=== PATIENT | female | born 1990 | race African-American/Black ===

== ENCOUNTER 2021-08-20 09:19 | Outpatient (CLI) | payer BC, SELFPAY ==
--- NOTE | ~2021-08-20 | US_ITS ---
EXAMINATION: US OB <= 14 weeks fetus DATE: 08/20/2021 10:58 INDICATION: Personal history of other complications of . TECHNIQUE: Real-time transabdominal and transvaginal pelvic ultrasound was performed. COMPARISON: None. FINDINGS: TRANSABDOMINAL ULTRASOUND: The uterus measures 11.4 x 6.4 x 4.7 cm. TRANSVAGINAL ULTRASOUND: There is an intrauterine gestational sac. A yolk sac is identified. The fet al crown rump length measures 4 mm, which correlates with an estimated gestational age of 5 weeks and 6 day(s) (+/-) 3 day(s). heart motion is identified measuring 112 beats per minute (bpm) by M- mode Doppler. There is a hypoechoic subchorionic hematoma measuring 1.5 x 2.0 x 0.5 cm. The right ova ry measures 2.7 x 2.3 x 2.3 cm. The left ovary measures 4.2 x 2.8 x 2.2 cm. There is trace free fluid in the pelvis. IMPRESSION: 1. Single living intrauterine gestation with estimated date of delivery of 04/15/2022. 2. Small subchorionic hematoma. Reviewed, dictated and finalized at location B. IMPRESSION: 1. Single living intrauterine gestation with estimated date of delivery of . 2. Small subchorionic hematoma.
== END 2021-08-20 09:20 | disposition home or self-care (01) ==
LOC: ANHIMG 09:27
PROVIDERS: Visit Provider Obstetrics & Gynecology
DX: Z87.59 Personal history of other complications of pregnancy, childbirth and the puerperium (principal); O36.8911 Maternal care for other specified fetal problems, first trimester, fetus 1; Z3A.00 Weeks of gestation of pregnancy not specified
CPT/HCPCS: 76801

== ENCOUNTER 2023-11-26 11:47 | Observation (INO) | payer BC, SELFPAY ==
[2023-11-26] VITALS (18 sets, daily range): BP systolic 93–113; BP diastolic 50–71; PULSE 88–157; O2SAT 83–100; BMI 26.2
[2023-11-26 12:24] LABS: Add Urine Microscopic? NO; Appearance Urine Clear (Clear); Bilirubin Urine Negative (Negative); Blood Urine Negative (Negative); Color Urine Yellow (Yellow); Glucose Urine UA Negative (Negative); Ketones Urine Negative (Negative); Leukocyte Esterase Ur Negative LEU/UL (Negative); Nitrate Urine Negative (Negative); Protein Urine Negative (Negative); Specific Grav Ur 1.015 (1.001-1.035); Urobilinogen Urine 0.2 mg/dL (<2.0)
--- NOTE | 2023-11-26 12:28 | LDADM ---
This patient, Rosibel Franco, was admitted to OB Post 115 on 11/26/23 at 11:47. Plans for labor, pain management and were discussed with patient. Patient/family oriented to hospital policies and general routines including ID bracelet, bed and alarms, visiting hours, pain management, procedures, bathroom and other care routines, personal items, smoking policy, room service/diet and guest tray routines, infant security routines, and visiting hours. Patient/Family are encouraged to report perceived risks to care and to ask questions if they do not understand what they are told or what they should do. See OBIX for further documentation.
--- NOTE | 2023-11-26 12:31 | PC.NURSE ---
Patient admitted to L&D observation with complaints of intermittent lower abdominal cramping. Patient states cramping has persisted intermittently since late last night. Patient states she felt 6 contractions in one hour and came in to be evaluated. Patient has not taken anything for pain as she states the cramping is very mild. UA sent on patient and patient given a pitcher of water with instructions to drink all of it.
[2023-11-26] MEDS: TERBUTALINE SULFATE 1 MG/ML VIAL 0.25 MG SUB-Q (13:54)
--- NOTE | 2023-11-26 13:58 | PC.NURSE ---
1245: Called Dr. Jerome, awaiting callback 1330: Called office and asked for Dr. Jerome. Office stated MD to return call. 1338: Spoke with Dr. Jerome on phone. Notified MD of patient's arrival, complaints of mild contractions, reactive tracing for 26 week gestational age and irregular contractions. Verbal orders received for FFN, cervical exam, and dose of terbutaline. MD requests callback with FFN results. 1350: FFN obtained, Allyn Strickland RN performed SVE and found patient's cervix to be closed/thick/high. 0.25mg subq terbutaline given at 1354.
[2023-11-26 14:34] LABS: Fetal Fibronectin Negative
--- NOTE | 2023-11-26 14:42 | PC.NURSE ---
1442: Spoke with Dr. Jerome on phone. Notified MD of FFN results, cervical exam, and contractions spacing out after terbutaline dose. MD gave verbal orders to discharge patient home with labor precautions. Patient agrees with plan of care at this time and has no questions.
--- NOTE | 2023-12-19 09:48 | PM.OBTRLD ---
OB - Triage/Final Diagnosis Visit Information Comments/Additional reasons for admission: I have assessed the risk for this patient, Rosibel Franoc, and determined that she would benefit from observation care. Evaluation Laboratory results: Laboratory Tests 11/26/23 11/26/23 12:16 13:49 Urine Color Yellow Urine Appearance Clear Urine pH 6.0 Ur Specific [place] 1.015 Urine Protein Negative Urine Glucose (UA) Negative Urine Ketones Negative Ur Blood (Man) Negative Urine Nitrate Negative Urine Bilirubin Negative Urine Urobilinogen 0.2 Leukocyte Esterase Rfl Negative Fibronectin Negative Final Diagnosis (1) contractions: Code(s): O47.00 - False labor before 37 completed weeks of gestation, unspecified trimester Status: Acute
== END 2023-11-26 14:57 | disposition home or self-care (01) ==
PROVIDERS: Admitting Provider Obstetrics & Gynecology; Visit Provider Obstetrics & Gynecology
DX: O47.02 False labor before 37 completed weeks of gestation, second trimester (principal); Z3A.26 26 weeks gestation of pregnancy
CPT/HCPCS: 81003; 82731; 96372; G0378; G0379; J3105

== ENCOUNTER 2024-01-15 12:34 | Outpatient (CLI) | payer BC, SELFPAY ==
[2024-01-15 13:04] LABS: Total Volume 24 Hour Urine 1900 ml
[2024-01-15 13:12] LABS: Total Protein Urine 24 Hr 285 mg/24hr (28-141); Total Protein Urine Random 15 mg/dL
== END 2024-01-15 12:35 | disposition home or self-care (01) ==
PROVIDERS: Visit Provider Obstetrics & Gynecology
DX: O14.90 Unspecified pre-eclampsia, unspecified trimester (principal)
CPT/HCPCS: 81050; 84156

== ENCOUNTER 2024-01-16 11:11 | Observation (INO) | payer BC, SELFPAY ==
[2024-01-16] VITALS (7 sets, daily range): BP systolic 103–114; BP diastolic 57–67; PULSE 85–102; TEMP 36.4; BMI 28.5
[2024-01-16] MEDS: NIFEdipine 10 MG CAPSULE PO (12:27)
[2024-01-16 12:41] LABS: Add Urine Microscopic? NO; Appearance Urine Clear (Clear); Bilirubin Urine Negative (Negative); Blood Urine Negative (Negative); Color Urine Yellow (Yellow); Glucose Urine UA Negative (Negative); Ketones Urine Negative (Negative); Leukocyte Esterase Ur Negative LEU/UL (Negative); Nitrate Urine Negative (Negative); Protein Urine Negative (Negative); Urobilinogen Urine 0.2 mg/dL (<2.0); pH Urine 6.5 (5.0-9.0)
--- NOTE | 2024-01-16 14:05 | OBADM ---
This patient, Rosibel Franco, admitted to the OB room OB Post 113 for observation. Patient/family oriented to hospital policies and general routines including ID bracelet, bed and alarms, visiting hours, pain management, procedures, bathroom and other care routines, personal items, smoking policy, room service/diet, and visiting hours. Patient/Family are encouraged to report perceived risks to care and to ask questions if they do not understand what they are told or what they should do.
--- NOTE | 2024-01-19 10:12 | PM.OBTRLD ---
OB - Triage/Final Diagnosis Visit Information Comments/Additional reasons for admission: I have assessed the risk for this patient, Rosibel Franco, and determined that she would benefit from observation care. Evaluation Laboratory results: Laboratory Tests 01/16/24 12:26 Urine Color Yellow Urine Appearance Clear Urine pH 6.5 Ur Specific [place] 1.010 Urine Protein Negative Urine Glucose (UA) Negative Urine Ketones Negative Ur Blood (Man) Negative Urine Nitrate Negative Urine Bilirubin Negative Urine Urobilinogen 0.2 Leukocyte Esterase Rfl Negative Final Diagnosis (1) contractions: Code(s): O47.00 - False labor before 37 completed weeks of gestation, unspecified trimester Status: Acute
== END 2024-01-16 14:40 | disposition home or self-care (01) ==
PROVIDERS: Admitting Provider Obstetrics & Gynecology; Visit Provider Obstetrics & Gynecology
DX: O47.03 False labor before 37 completed weeks of gestation, third trimester (principal); Z3A.33 33 weeks gestation of pregnancy
CPT/HCPCS: 81003; A9270; G0378; G0379

== ENCOUNTER 2024-02-16 11:55 | Outpatient (RCR) | payer BC, SELFPAY ==
[2024-01-26 16:19] VITALS: BP 106/64; PULSE 92
[2024-02-03 15:45] VITALS: BP 99/71; PULSE 92
[2024-02-10 15:03] VITALS: BP 106/71; PULSE 95
[2024-02-12 18:18] VITALS: BP 111/67; PULSE 102
--- NOTE | ~2024-02-16 | US_ITS ---
EXAMINATION: US OB limited w BPP DATE: 01/26/2024 16:11 CDT INDICATION: Decreased movement TECHNIQUE: Real-time transabdominal transabdominal obstetric ultrasound. FINDINGS: Amniotic fluid index measures 16.4 cm (5th percentile is 7.9 cm and 95th percentile is 24.9 cm). The cervix measures 4.6 cm, and is closed. There is a single intrauterine gestation in transverse presentation. The placenta is anterior withou t evidence of previa. cardiac activity and movement is noted with a rate of 148 beats per minute. Biophysical profile: breathin of 2 movement: 2 of 2 tone: 2 of 2 Amniotic flud pocket: 2 of 2 Total score: 8 of 8 IMPRESSION: 1. Single intrauterine gestation in transverse presentation. 2: Total biophysical profile score of 8 of 8. Amniotic fluid index is within normal limits, as detailed above. Reviewed, dictated and finalized at location A.
--- NOTE | ~2024-02-16 | US_ITS ---
EXAMINATION: US OB BPP wo non-stress DATE: 02/10/2024 15:52 INDICATION: Large for gestational age. Decreased movements. TECHNIQUE: Real-time pelvic ultrasound was performed. The interpreting radiologist was not present fo r the study. COMPARISON: None. FINDINGS: There is a single living fetus in vertex presentation. The placenta is anterior. cardiac activ ity and movement are demonstrated. heart rate is 152 beats per minute (bpm). Biophysical profile performed by the technologist: breathing (30 sec sustained breathing in 30 minutes): 2 out of 2 movement (3 gross body movements in 30 minutes): 2 out of 2 tone (one episode of afknfgr-shyieynkz-fyrpwte limb movement): 2 out of 2 Amniotic fluid pocket (2 cm): 2 out of 2 Total score: 8 out of 8 IMPRESSION: 1. Single living intrauterine in presentation with heart rate of with heart rat e of [ bpm. 2. Normal placenta. 3. Biophysical profile out of 8. Reviewed, dictated and finalized at location B. IMPRESSION: 1. Single living intrauterine in presentation with heart rate o f with heart rate of [ bpm. 2. Normal placenta. 3. Biophysical profile out of 8.
--- NOTE | ~2024-02-16 | US_ITS ---
EXAMINATION: US OB BPP wo non-stress DATE: 02/16/2024 13:26 INDICATION: Large for gestational age. Third trimester. TECHNIQUE: Real-time pelvic ultrasound was performed. COMPARISON: Ultrasound 02/12/2024 FINDINGS: There is a single living fetus in breech presentation. The placenta is anterior. heart rate is 146 beats per minute (bpm). The cervical length is 2.8 cm on transabdominal images, which is normal. Biophysical profile performed by the technologist: breathing (30 sec sustained breathing in 30 minutes): 2 out of 2 movement (3 gross body movements in 30 minutes): 2 out of 2 tone (one episode of mvtimqn-pdakpzzpv-ogbzsct limb movement): 2 out of 2 Amniotic fluid pocket (2 cm): 2 out of 2 Total score: 8 out of 8 IMPRESSION: 1. Single living fetus in breech presentation. 2. Biophysical profile 8 out of 8. Reviewed, dictated and finalized at location B.
--- NOTE | ~2024-02-16 | US_ITS ---
EXAMINATION: US OB BPP wo non-stress DATE: 02/12/2024 17:54 INDICATION: Decreased movement TECHNIQUE: Real-time pelvic ultrasound was performed. The interpreting radiologist was not present fo r the study. COMPARISON: None. FINDINGS: There is a single living fetus in vertex presentation. The placenta is anterior. heart rate is 152 beats per minute (bpm). Amniotic fluid volume is subjectively normal with normal deepest vertica l pocket measuring 5.2 cm. Biophysical profile performed by the technologist: breathing (30 sec sustained breathing in 30 minutes): 2 out of 2 movement (3 gross body movements in 30 minutes): 2 out of 2 tone (one episode of mwbpitw-isggcanjt-qfdpprt limb movement): 2 out of 2 Amniotic fluid pocket (2 cm): 2 out of 2 Total score: 8 out of 8 IMPRESSION: 1. Single living fetus in vertex presentation with heart rate of 152 bpm. 2. Biophysical profile 8 out of 8. Reviewed, dictated and finalized at location A.
--- NOTE | ~2024-02-16 | US_ITS ---
EXAMINATION: US OB BPP wo non-stress DATE: 02/03/2024 15:58 INDICATION: Large for gestational age. Third trimester. TECHNIQUE: Real-time pelvic ultrasound was performed. COMPARISON: Ultrasound 01/26/2024 FINDINGS: There is a single living fetus in vertex presentation. The placenta is anterior. The cervical length is 4.5 cm on transabdominal images, which is normal. heart rate is 145 beats per minute (bpm). The deepest vertical pocket is 3.9 cm. Biophysical profile performed by the technologist: breathing (30 sec sustained breathing in 30 minutes): 2 out of 2 movement (3 gross body movements in 30 minutes): 2 out of 2 tone (one episode of zperqwk-yotaygnnu-qhjcfap limb movement): 2 out of 2 Amniotic fluid pocket (2 cm): 2 out of 2 Total score: 8 out of 8 IMPRESSION: 1. Single living fetus in vertex presentation. 2. Biophysical profile 8 out of 8. Reviewed, dictated and finalized at location A.
--- NOTE | 2024-02-16 14:50 | PC.NURSE ---
See inpatient number for charting.
== END 2024-04-25 23:59 | disposition home or self-care (01) ==
LOC: ANHOBOP 11:55
PROVIDERS: Visit Provider Obstetrics & Gynecology
DX: O36.8130 Decreased fetal movements, third trimester, not applicable or unspecified (principal); Z3A.35 35 weeks gestation of pregnancy
CPT/HCPCS: 59025; 76815; 76819

== ENCOUNTER 2024-02-16 13:30 | Inpatient (IN) | payer BC, SELFPAY ==
[2024-02-16] VITALS (42 sets, daily range): BP systolic 95–127; BP diastolic 48–81; PULSE 54–125; RESP 13–20; TEMP 35.7–36.9; O2SAT 95–100; BMI 29.7
--- NOTE | 2024-02-16 13:30 | LDADM ---
This patient, Rosibel Franco, was admitted to Labor/Delivery/Recovery 119 on 02/16/24 at 13:30. Plans for labor, pain management and were discussed with patient. Patient/family oriented to hospital policies and general routines including ID bracelet, bed and alarms, visiting hours, pain management, procedures, bathroom and other care routines, personal items, smoking policy, room service/diet and guest tray routines, security routines, and visiting hours. Patient/Family are encouraged to report perceived risks to care and to ask questions if they do not understand what they are told or what they should do. See OBIX for further documentation.
[2024-02-16] MEDS: LACTATED RINGERS 1,000 ML 125 ML IV CONT ×2 (14:13→14:58)
[2024-02-16] MEDS: ACETAMINOPHEN 500 MG TABLET 1000 MG PO (14:14)
[2024-02-16 14:22] LABS: Basophils Percent Auto 0.5 % (0.2-1.2); Eosinophils Percent Auto 0.3 % (0-4.4); Hematocrit 40.6 % (37.0-47.0); Hemoglobin 13.7 g/dL (12.0-15.0); Immature Granulocyte Absolute 0.28 K/mm3 (0.00-0.031); Immature Granulocyte Percent A 3.2 % (0-0.5); Lymphocytes Absolute Auto 1.65 K/mm3 (0.9-3.2); Lymphocytes Percent Auto 18.8 % (18.3-44.2); Mean Corpuscular HGB Conc 33.7 g/dl (32-36); Mean Corpuscular Hemoglobin 31.6 pg (26-34); Mean Corpuscular Volume 93.8 fl (80-100); Mean Platelet Volume 12.2 fl (7.4-10.4); Monocytes Absolute Auto 0.9 K/mm3 (0.1-0.6); Monocytes Percent Auto 10.3 % (2.6-8.5); Neutrophils Absolute Auto 5.9 K/mm3 (1.3-6.7); Neutrophils Percent Auto 66.9 % (45.5-73.1); Platelet Count Result 192 k/mm3 (150-375); Red Blood Count 4.33 M/mm3 (4.2-5.4); Red Cell Distribution Width 13.5 % (11.5-14.5); White Blood Count 8.8 K/mm3 (4.5-10.0)
--- NOTE | 2024-02-16 14:29 | P.PNAN_ITS ---
Anes - Initial Pre Proc Eval Procedure: Operation Date: 02/24/24 07:30 Proposed Procedures p Repeat Section - Arsen Jerome MD Date/Time: 02/16/24 14:29 Surgeon: Arsen Jerome MD Pre Op Diagnosis: Csection Patient Data Age: 33 Gender: F Height: Weight: Allergies Allergy/AdvReac Type Severity Reaction Status Date / Time alligator Allergy Intermediate Swelling Uncoded 02/12/24 15:16 Home Medications Medication Instructions Recorded Confirmed Type [id number] 27 mg-folic 1 cap PO DAILY #90 caps 06/24/23 02/12/24 Rx acid 1 mg-dss 50 mg-dha 260 mg capsule aspirin 81 mg capsule 81 mg PO DAILY 11/26/23 02/12/24 History docusate sodium 100 mg capsule 100 mg PO DAILY 01/16/24 02/12/24 History (Colace) ferrous sulfate 325 mg (65 mg 325 mg PO DAILY 01/16/24 02/12/24 History iron) tablet Laboratory Tests 02/16/24 14:05 WBC Pending RBC Pending Hgb Pending Hct Pending MCV Pending MCH Pending MCHC Pending RDW Pending Plt Count Pending MPV Pending Immature Gran % (Auto) Pending Neut % (Auto) Pending Lymph % (Auto) Pending [place] % (Auto) Pending Eos % (Auto) Pending Baso % (Auto) Pending Lymph # (Auto) Pending [place] # (Auto) Pending Eos # (Auto) Pending Baso # (Auto) Pending Abs Immat Gran (auto) Pending Absolute Neuts (auto) Pending Absolute Nucleated RBC Pending Nucleated RBC % Pending RPR Pending HIV 1&2 Ab/P24 Ag 4thGn Pending Blood Type Pending Antibody Screen Pending Patient hx anesthesia problems: none Family hx anesthesia problems: none Results Review: All pre-operative results and documents have been reviewed as part of the pre- operative evaluation. [facility] Past Medical History Medical History History of miscarriage Hx of ectopic Family History Family History Grandparent Cerebrovascular accident Grandparent H/O cancer of gall bladder Social History Social History Smoking status: Never smoker Alcohol intake: current Substance use: never Lack of Transportation: No Lack of Food: Never True Current Housing: I Have Housing Concerned About Future Housing: No Difficulty Paying Gas/Electric Bills: No Difficulty Paying for Meds: No Currently Unemployed: No Education: Bachelor's Degree Difficulty w/ Childcare or Family Care: No Spiritual care concerns: No Anes - Eval Final PreProcedure Day of Procedure 02/16/24 14:29 Patient weight: normal Heart: regular rate and rhythm Lungs: clear to auscultation Airway: Mallampati scale class II Neurological: alert and oriented Last oral intake: >/= 8 hours ASA classification: II Emergent: no Anesthetic plan: proceed Anesthesia type and monitoring: regional spinal and standard monitoring Results Review: All pre-operative results and documents have been reviewed as part of the pre- operative evaluation. Informed Consent: The patient's anesthetic plan and its attendant risks and benefits were discussed with the patient/family/POA. Questions were solicited and answers provided to the satisfaction of the patient/family/POA.
[2024-02-16 15:17] LABS: HIV 1/2 Ab P24 Ag Result Negative (Negative)
[2024-02-16 15:28] LABS: Rapid Plasma Reagin Non-Reactive (NonReactive)
[2024-02-16] MEDS: FAMOTIDINE 20 MG/2 ML VIAL IV PUSH (15:40)
[2024-02-16] MEDS: ONDANSETRON INJ 4 MG/2 ML VIAL IV PUSH ×2 (15:40→18:46)
[2024-02-16] MEDS: ceFAZolin 2 GM/D5W 50 ML 2 GM/50 ML BAG IVPB (15:55)
--- NOTE | 2024-02-16 15:55 | WPDHPUPDATE1 ---
History and Physical Update Update Date/Time: 02/16/24 15:55 History and Physical has been reviewed, including an updated exam of the patient. Patient admitted for repeat section for nonreassuring surveillance testing. She has LGA fetus, breech. Has had decrease, minimal movement kick counts for a week. Today's NST NR within the time frame. This is a change from prior testing. Recommend repeat section today. Risk benefits and alternatives discussed. She agrees tor repeat seciton.There are NO changes in the patient's condition. Risks, benefits, and alternatives have been discussed and questions answered. Patient agrees to proceed with procedure.
--- NOTE | 2024-02-16 17:19 | W.PM.OBCSD ---
OB - Delivery Note Procedure Delivery date: 02/17/24 Pre-op diagnosis: Macrosomia and Non-Reassuring Status (non reactive NST) Post-op Diagnosis: Same Delivery monitor: External FHT Prior to decision for section, ACOG/SM labor guidelines were considered and discussed with the patient and staff. Decision made to proceed with the section.: Yes Procedure Performed: Repeat Surgeon: Arsen Jerome MD Anesthesia type: Spinal Description of Procedure/Findings: male 9lbs 2oz, footling breech presentation. After informed consent, risks and benefits of the procedure was discussed with the patient. The patient was taken to the operating room where she was placed in the dorsal lithotomy position with leftward tilt. After spinal anesthesia was found to be adequate, she was then prepped and draped in the usual sterile fashion. A Pfannenstiel skin incision was made along prior Pfannenstiel scar with a scalpel and carried through to the underlying layer of fascia. The fascia was then nicked in the midline, extending bilaterally. The fascia was dissected off the rectus muscles bluntly and sharply, superiorly and inferiorly. The rectus muscles were in the midline, and peritoneum was identified and entered bluntly. The pelvic organs were visualized. The bladder blade was then inserted. The vesicouterine peritoneum was identified and entered sharply with Metzenbaum scissors and extended bilaterally and then the bladder flap was created digitally. The lower uterine segment was noted to be thin diffusely. There was not a window. The low transverse uterine incision was then made with the scalpel and extended with bilateral index fingers in a crescent-shaped fashion. the feet were gently grasped and the buttocks delivered. The arms and shoulders were delivered. The loose nuchal cord was manually reduced and the head was flexed and delivered.The nose and mouth suctioned. The infant was vigorously crying.The cord was clamped twice and cut. The infant was then handed off to the awaiting pediatric staff. Cord blood was obtained.The placenta was then delivered manually. The uterine cavity was sponge curretted. The uterus was then exteriorized. The uterine incision was then closed with 0 vicryl in a running locked fashion. Hemostasis noted. A second layer of 0 vicryl was used in an imbricating fashion for hemostasis. The posterior cul-de-sac was irrigated and cleared of debris and clots.The uterus was then returned to the abdomen. Bilateral gutters were irrigated and cleared off all clots and debris. The uterine incision was noted to be hemostatic. Interceed placed on uterine incision and vertically on front of uterus. The peritoneum was approximated with a running 3-0 Vicryl. The muscle bellies were inspected and noted to be hemostatic. The subfascial layer was noted to be hemostatic, and the fascia was closed with 0 Vicryl in a running fashion x2 sutures. The skin was 4-0 Vicryl on a Keif needle in a subcuticular fashion. Dermabond applied at incision. All instruments, needle, and lap counts were correct x3. The patient was taken to the recovery room in stable condition. Specimen: Yes (placenta and cord) Estimated Blood Loss: 205 Drains: No Packing: No Pathology: Yes Complications: No immediate complications Condition: Stable Disposition: Floor Baby Date of : 02/16/24 Infant gender: Male presentation: breech (footling)
[2024-02-16] MEDS: METHYLERGONOVINE MALEATE 0.2 MG/ML VIAL (17:36)
[2024-02-16] MEDS: OXYTOCIN 30 UNITS/NS 500 ML 30 UNITS/500 ML BAG 125 UNITS IV CONT (18:00)
[2024-02-16] MEDS: ACETAMINOPHEN 325 MG TABLET 650 MG PO (18:46)
[2024-02-16] MEDS: KETOROLAC 15 MG/ML VIAL (*BKC) IV PUSH (18:53)
[2024-02-16] MEDS: LIDOCAINE 5% PATCH 1 PATCH TRANSDERM (20:46)
[2024-02-16] MEDS: DEXTROSE 5%/0.45% SOD CHL 1,000 ML 125 ML IV CONT (22:38)
[2024-02-17 00:30] VITALS: BP 98/59; PULSE 80; RESP 16; TEMP 36.9; O2SAT 99
[2024-02-17] MEDS: ACETAMINOPHEN 325 MG TABLET 650 MG PO ×4 (01:14→20:28)
[2024-02-17] MEDS: KETOROLAC 15 MG/ML VIAL (*BKC) IV PUSH ×3 (01:15→14:23)
[2024-02-17 03:40] VITALS: BP 92/49; PULSE 69; RESP 16; TEMP 36.4; O2SAT 99
[2024-02-17 05:07] LABS: Basophils Absolute Auto 0.1 K/mm3 (0.0-0.1); Basophils Percent Auto 0.4 % (0.2-1.2); Eosinophils Percent Auto 0.1 % (0-4.4); Hemoglobin 11.5 g/dL (12.0-15.0); Immature Granulocyte Absolute 0.12 K/mm3 (0.00-0.031); Immature Granulocyte Percent A 0.9 % (0-0.5); Lymphocytes Absolute Auto 1.19 K/mm3 (0.9-3.2); Lymphocytes Percent Auto 8.8 % (18.3-44.2); Mean Corpuscular HGB Conc 33.8 g/dl (32-36); Mean Corpuscular Hemoglobin 31.5 pg (26-34); Mean Corpuscular Volume 93.2 fl (80-100); Mean Platelet Volume 12.3 fl (7.4-10.4); Monocytes Absolute Auto 1.2 K/mm3 (0.1-0.6); Monocytes Percent Auto 8.8 % (2.6-8.5); Platelet Count Result 161 k/mm3 (150-375); Red Blood Count 3.65 M/mm3 (4.2-5.4); Red Cell Distribution Width 13.2 % (11.5-14.5); White Blood Count 13.6 K/mm3 (4.5-10.0)
--- NOTE | 2024-02-17 05:48 | OBPPTRN ---
02/17/2024 at 1940 Patient transferred on stretcher to post room #280. Patient oriented to unit, room, information board, rooming in, admission packet and security measures. Patient verbalizes understanding.
[2024-02-17 07:25] VITALS: BP 96/59; PULSE 95; RESP 18; TEMP 36.7; O2SAT 98
[2024-02-17] MEDS: MULTIVIT/MIN/PREN/FOL AC/IRON TABLET 1 TAB PO (07:56)
[2024-02-17] MEDS: SIMETHICONE 80 MG TAB.CHEW PO ×3 (07:56→16:35)
--- NOTE | 2024-02-17 10:25 | PC.NURSE ---
Observed mother with latched to the [right] breast in [cradle] position. [was] able to maintain an appropriate latch with audible swallowing. Mother [declines] nipple pain/discomfort [throughout feeding]. She breastfed her first baby for 1 year. Encouraged mother to keep awake and nursing at the breast for 15 minutes. Mother knows how to listen for swallowing during feedings. Reviewed using the blue feeding sheet to record time and duration of feeding. Mother voiced understanding of the education shared, to call for assistance if the infant does not latch or if there is discomfort with . name/number on communication board. Reported to the Primary RN.?
[2024-02-17 12:07] VITALS: BP 100/63; PULSE 84; RESP 18; TEMP 36.6; O2SAT 100
[2024-02-17] MEDS: HYDROcodone/acetaminophen (*CRX) 5-325 MG TABLET 1 TAB PO ×3 (13:05→19:53)
--- NOTE | 2024-02-17 14:34 | WPDANLDPN2 ---
Anes-Prog Note L&D Date/Time: 02/17/24 14:34 Comfortable throughout: section Neuraxial method: spinal Epidural/Spinal procedure site: clean & non-tender Neuro status: Neuro function grossly intact. Cardiovascular status: normal Respiratory status: normal Airway patency: baseline Mental status: baseline Vital Signs: Last Vital Signs Temp 36.6 C 02/17/24 12:07 Pulse 84 02/17/24 12:07 Resp 18 02/17/24 12:07 BP 100/63 02/17/24 12:07 Pulse Ox 100 02/17/24 12:07 O2 Del Method Room Air 02/16/24 19:25 Pain score (VAS): 1 I/O: Intake & Output 02/16/24 02/17/24 02/17/24 23:59 07:59 15:59 Intake Total 50 840 Output Total 205 [id number] 470 Pljhcox [phone] Patient feedback: Patient satisfied with anesthetic care.
--- NOTE | 2024-02-17 14:34 | WPDANLDNPN2 ---
Anes-Prog Note L&D-Neuraxial Date/Time: 02/17/24 14:34 Neuraxial medications: intrathecal PF morphine Opiod-related complaints: none Patient feedback: Patient satisfied with post-operative pain management.
[2024-02-17] MEDS: DOCUSATE SODIUM 100 MG CAPSULE PO (16:35)
[2024-02-17 20:00] VITALS: BP 100/56; PULSE 101; RESP 18; TEMP 37; O2SAT 100
[2024-02-17] MEDS: IBUPROFEN 600 MG TABLET PO (20:28)
[2024-02-18] MEDS: IBUPROFEN 600 MG TABLET PO ×3 (02:45→15:12)
[2024-02-18] MEDS: ACETAMINOPHEN 325 MG TABLET 650 MG PO ×3 (02:45→15:11)
[2024-02-18 08:05] VITALS: BP 90/59; PULSE 82; RESP 16; TEMP 37.1; O2SAT 99
--- NOTE | 2024-02-18 08:10 | PC.NURSE ---
Consulted with mother concerning needs and she shared her ability to independently latch infant optimally without pain. Mother is feeding appropriately for growth of and understands stimulating to eat if needed. Infant has had appropriate feedings in the last 24 hours meets the outcomes for weight, output, blood sugar and jaundice at this time. Reinforced understanding of milk production, transition of milk, signs of adequate intake, transition of stool, prevention/relief of engorgement, plugged ducts, mastitis, responsive watching for feeding cues, the different methods of stimulating to breastfeed 1-3 hours after the start of the last feeding, community resources, and when to call a provider using the resource of the feeding sheet along with the mom and baby guide. Mother voiced understanding of the information shared, is confident to continue effectively her infant at home, when to call for assistance, denies any additional assistance or education at this time. Reported to the Primary RN.
[2024-02-18] MEDS: MULTIVIT/MIN/PREN/FOL AC/IRON TABLET 1 TAB PO (09:34)
[2024-02-18] MEDS: SIMETHICONE 80 MG TAB.CHEW PO ×2 (09:35→13:20)
[2024-02-18] MEDS: DOCUSATE SODIUM 100 MG CAPSULE PO (09:35)
[2024-02-18] MEDS: HYDROcodone/acetaminophen (*CRX) 10-325 MG TABLET 1 TAB PO (13:19)
[2024-02-18] MEDS: BISACODYL 10 MG SUPPOSITORY RECTAL ×2 (15:54→17:35)
[2024-02-18] MEDS: PETROLATUM OINTMENT 5 GM PACKET 1 APPLIC ×2 (16:00→17:36)
--- NOTE | 2024-02-18 21:22 | PC.NURSE ---
0815 Stated stated, in person, she needs to pass gas before D/C. She has good bowl sounds just has not passed gas yet. Try prune juice and pepsi. Call when she does and she will put in the D/C order. 1030 given prune juice and pepsi. 1313 ambulated in the corea times [address] Jerome called to check on pts progress. This RN was not able to take the phone call. [address] Jerome per phone and left message with office staff for her to return my call. 1445 Dr. Jerome returned my call and an update was given. She stated to given the pt a suppository. If no passing gas in 1 hour it can be repeated. If no results after that dose she will need to stay over night. 1600 First on given. 1715 not passing gas. 1742 Second dose given. 181 Pt called out to the desk and stated that she passed gas. [address] Aburtos exchange. 1824 Dr[address] Aburto returned the call. Informed him of pts status and how she is passing gas now. Can she be D/C'd home? He stated yes she can. Please put the order in. 1830 D/C order put in. Report given to Jimmy Tavarez RN. She will D/C pt.
[2024-02-19 14:11] VITALS: BP 125/63; PULSE 95; RESP 20; TEMP 36.8; O2SAT 100
== END 2024-02-18 19:45 | disposition home or self-care (01) | DRG 788 ==
LOC: ANHLDR 14:36 → ANHOB2 02-18 14:10 → ANHLDR 02-19 11:47
PROVIDERS: Admitting Provider Obstetrics & Gynecology; Visit Provider Obstetrics & Gynecology
PROC: 10D00Z1 Extraction of Products of Conception, Low, Open Approach (ICD-10-PCS; CPT 59514; principal; 2024-02-16 15:00)
DX: O34.219 Maternal care for unspecified type scar from previous cesarean delivery (principal); O76 Abnormality in fetal heart rate and rhythm complicating labor and delivery; O99.824 Streptococcus B carrier state complicating childbirth; O69.81X0 Labor and delivery complicated by cord around neck, without compression, not applicable or unspecified; O36.63X0 Maternal care for excessive fetal growth, third trimester, not applicable or unspecified; O32.8XX0 Maternal care for other malpresentation of fetus, not applicable or unspecified; Z3A.38 38 weeks gestation of pregnancy; Z37.0 Single live birth
CPT/HCPCS: 36415; 85025; 86592; 86703; 86850; 86900; 86901; 88307; A9270; G0432; J0690; J1885; J2210; J2274; J2405; J2590; J7120